=== PATIENT | male | born 1985 | race Caucasian/White ===

== ENCOUNTER 2024-06-30 10:51 | Emergency (ER) | payer OTHER, SELFPAY ==
[2024-06-30 10:58] VITALS: BP 134/79; PULSE 87; RESP 18; TEMP 40.3; O2SAT 98
[2024-06-30 10:59] VITALS: BP 134/79; PULSE 84; RESP 18; TEMP 40.3; O2SAT 98; BMI 21.7
--- NOTE | 2024-06-30 11:39 | CRLHL7_ITS ---
For Patients: As a result of the Cures Act, medical imaging exams and procedure reports are released immediately into your electronic medical record. You may view this report before your referring provider. If you have questions, please contact your health care provider. INDICATION: Fever body aches TECHNIQUE: Chest radiograph 2 views COMPARISON: None FINDINGS: Mediastinum: The mediastinum is normal in appearance. The heart silhouette is normal in size and morphology. Lung: Moderate to severe patchy consolidation in the left lung base is present likely due to pneumonia. No sign of pleural effusion seen. No pneumothorax is identified. Bone and Soft tissue: Unremarkable for age. IMPRESSION: 1. Moderate to severe patchy consolidation in the left lung base is present likely due to pneumonia. Dictated by Jose Manuel Teran MD @ 06/30/2024 12:28:56 PM Dictated by: Jose Manuel Teran MD @ 06/30/2024 12:29:00 (Electronically Signed)
--- NOTE | 2024-06-30 11:51 | ED_ITS ---
HPI - Fever General Chief Complaint: Fever Stated Complaint: fever, body aches Time Seen by Provider: 06/30/24 11:32 History of Present Illness HPI Narrative: This 38-year-old male comes in reporting fever and generalized aches and pains especially increased pain in his low back. He does not report headache or neck pain. He states that he does not have any cough or shortness of breath. He does not report any dysuria symptoms. He arrives here with a temperature of 104.5? F. he states that symptoms started a couple days ago and he was able to treat the symptoms sufficiently with Tylenol and ibuprofen. He states that this is no longer helping him. He has not had Tylenol since last night but did have some ibuprofen several hours ago. Related Data Previous Rx's ?Medication ?Instructions ?Recorded doxycycline hyclate 100 mg capsule 100 mg PO BID 10 days #20 caps 06/30/24 ketorolac 10 mg tablet 10 mg PO Q8H 5 days #15 tabs 06/30/24 Allergies Allergy/AdvReac Type Severity Reaction Status Date / Time No Known Drug Allergies Allergy Verified 06/30/24 10:59 Review of Systems Status of ROS Reports: 10 or more systems reviewed and unremarkable except as noted in History and below Narrative Constitutional: No weight gain or loss. Eyes: No discharge. No vision changes. HENT: No congestion, no sore throat, no ear pain. Cardiovascular: No chest pain, no palpitations. Respiratory: No shortness of breath, no wheezes, no cough. Gastrointestinal: No abdominal pain, no vomiting, no diarrhea. Genitourinary: No dysuria, no hematuria. Musculoskeletal: Normal range of motion. Skin: No rashes, no pruritis. Neurological: No dizziness, weakness, sensory change, speech change. Endo/Heme/Allergies: No bruising or bleeding. No polydipsia. Pysch: no suicidality, no anxiety, no insomnia. All other systems reviewed and are negative. PFSH PFSH Social History Smoking Status: Former smoker What tobacco products do you use: cigarettes Smoking quit date/years: <= 15 years ago How often do you have a drink containing alcohol: monthly or less AUDIT-C Alcohol total score: 1 Non-prescribed substance use: former substance user and marijuana (any form) Exam Narrative Exam Narrative: Constitutional: Well-developed, well-nourished. HEENT: Normocephalic, atraumatic. Neck: Normal range of motion. Nontender. Supple. Heart: Regular. No murmurs. Normal rate. Intact distal pulses. Lungs: Clear to auscultation. No chest discomfort. No wheezes, rhonchi, or rales. Abdomen: Normal bowel sounds. Nontender. No rebound tenderness. Genitalia: Deferred. Back: No midline tenderness. Normal range of motion. He reports generalized low back pain. Extremities: Normal range of motion. No injury. Skin: Intact. No rash. Warm. No erythema or pallor. Neurologic: No altered sensation. No weakness. Alert and oriented. Psychiatric: No suicidality. No anxiety or depression. No insomnia. Nursing notes and vitals signs are reviewed. Const Vital Signs, click to edit/add: Vital Signs - 24 hr 06/30/24 10:58 06/30/24 10:59 06/30/24 11:55 Temperature 104.5 F H 104.5 F H 104.5 F H Pulse Rate [Pulse Oximeter] 87 84 Respiratory Rate 18 18 Blood Pressure [Right Arm] 134/79 Blood Pressure [Right Upper Arm] 134/79 Pulse Oximetry 98 98 Oxygen Delivery Method Room Air Room Air 06/30/24 12:00 Temperature 103.5 F H Pulse Rate [Pulse Oximeter] 80 Respiratory Rate 16 Blood Pressure [Right Arm] Blood Pressure [Right Upper Arm] 132/70 Pulse Oximetry 98 Oxygen Delivery Method Room Air Course Vital Signs Vital signs: Initial Vital Signs Temperature 104.5 F H 06/30/24 10:58 Temperature Source Temporal Artery Scan 06/30/24 10:58 Pulse Rate 87 06/30/24 10:58 Pulse Rhythm Regular 06/30/24 10:58 Respiratory Rate 18 06/30/24 10:58 Respiratory Effort Normal, Spontaneous, Non-Labored 06/30/24 10:58 Respiratory Depth Normal 06/30/24 10:58 Respiratory Pattern Normal 06/30/24 10:58 Blood Pressure 134/79 06/30/24 10:58 Blood Pressure Mean 97 06/30/24 10:58 Blood Pressure Position Sitting 06/30/24 10:58 Pulse Oximetry 98 06/30/24 10:58 Oxygen Delivery Method Room Air 06/30/24 10:58 Sepsis Recent Fever Within 48 Hours Yes 06/30/24 10:58 Sepsis New/Unexplained Change in Mental Status No 06/30/24 10:58 Sepsis Action Taken by Nursing Physician Notified 06/30/24 10:58 Vital Signs Temperature 104.5 F H 06/30/24 10:58 Pulse Rate 87 06/30/24 10:58 Respiratory Rate 18 06/30/24 10:58 Blood Pressure 134/79 06/30/24 10:58 Pulse Oximetry 98 06/30/24 10:58 Oxygen Delivery Method Room Air 06/30/24 10:58 Temperature 103.5 F H 06/30/24 12:00 Pulse Rate 80 06/30/24 12:00 Respiratory Rate 16 06/30/24 12:00 Blood Pressure 132/70 06/30/24 12:00 Pulse Oximetry 98 06/30/24 12:00 Oxygen Delivery Method Room Air 06/30/24 12:00 Medications Administered Medications: Discontinued Medications Generic Name Dose Route Start Last Admin Trade Name Freq PRN Reason Stop Dose Admin Hydromorphone HCl 0.3 mg 06/30/24 11:38 06/30/24 11:55 Hydromorphone 0.5 Mg/0.5 Ml Inj IVP 06/30/24 11:39 0.3 mg ONCE ONE Administration Sodium Chloride 1,000 mls @ 1,000 mls/hr 06/30/24 11:45 06/30/24 11:55 0.9 % Sodium Chloride 1000 Ml IV 06/30/24 12:44 1,000 mls/hr .Q1H ANIA Administration Piperacillin Sod/Tazobactam 100 mls @ 200 mls/hr 06/30/24 12:08 06/30/24 13:06 Sod 3.375 gm/ Sodium Chloride IVPB 06/30/24 12:09 Infused ONCE ONE Infusion Ketorolac Tromethamine 30 mg 06/30/24 11:38 06/30/24 11:55 Ketorolac 30 Mg/Ml Inj IVP 06/30/24 11:39 30 mg ONCE ONE Administration MDM - Fever MDM Narrative Medical decision making narrative: This patient comes in with a rather significant fever but otherwise has normal vital signs. An IV was established where he did receive Dilaudid 0.2 mg and Toradol 30 mg. Labs are acquired along with a blood culture. His lactate returns in normal range. Other lab results are also reassuring. X-ray imaging of the chest shows an obvious left pneumonia. The patient received an IV dose of Zosyn and is feeling much better. I did offer admission into the hospital but he prefers to return home. I did advise him to return if worsening symptoms occur. He received prescriptions for doxycycline and Toradol. Lab Data Labs: Lab Results 06/30/24 Range/Units 11:50 WBC 10.11 (4.50-11.00) K/uL RBC 5.34 (4.30-5.90) m/uL Hgb 15.8 (13.5-17.5) gm/dL Hct 45.3 (37.0-53.0) % MCV 85 (80-100) fL MCH 30 (26-34) pg MCHC 35 (32-36) gm/dL RDW Coeff of Renzo 11.7 (11.5-15.5) % Plt Count 172 (140-440) K/uL Neut % (Auto) 86.4 H (42.0-72.0) % Lymph % (Auto) 9.2 L (20-44) % [place] % (Auto) 3.3 (0.0-11.0) % Eos % (Auto) 0.1 (0.0-7.0) % Baso % (Auto) 0.2 (0.0-3.0) % Neut # (Auto) 8.70 H (1.7-7.0) K/uL Lymph # (Auto) 0.90 (0.90-2.90) K/uL [place] # (Auto) 0.30 (0.00-0.90) K/UL Eos # (Auto) 0.01 (0.00-0.50) K/uL Baso # (Auto) 0.02 (0.00-0.30) K/uL Abs Immat Gran (auto) 0.08 (0.00-0.30) K/uL Imm/Tot Granulo (auto) 0.8 % Sodium 133 L (135-149) mmol/L Potassium 3.9 (3.6-5.1) mmol/L Chloride 101 (96-114) mmol/L Carbon Dioxide 22 (20-32) mmol/L Anion Gap 10 (7-15) mEq/L BUN 17 (5-24) mg/dL Creatinine 0.8 (0.5-1.5) mg/dL Estimated Creat Clear 129.78 Estimated GFR 117 ml/min Glucose 105 (60-115) mg/dL Lactate 1.8 (0.5-1.9) mmol/L Calcium 9.2 (8.4-10.6) mg/dL Procalcitonin 0.89 H (<0.50) ng/mL Imaging Data Chest x-ray: Radiologist's impression: Moderate to severe patchy consolidation in the left lung base is present likely due to pneumonia. Discharge Plan Discharge Clinical Impression: Pneumonia Patient Disposition: Home, Self-Care Condition: Improved Additional Instructions: Take medication as prescribed. Follow up with MD or return if worsening symptoms occur. Prescriptions: New doxycycline hyclate 100 mg capsule 100 mg PO BID 10 Days Qty: 20 0RF ketorolac 10 mg tablet 10 mg PO Q8H 5 Days Qty: 15 0RF Follow Up/Referrals: Provider,Not a Local [Primary Care Provider] - Stand Alone Forms: [employer] Info Instructions
[2024-06-30 11:55] VITALS: TEMP 40.3
[2024-06-30] MEDS: HYDROmorphone 0.5 mg/0.5 ml inj 0.3 MG IVP (11:55)
[2024-06-30] MEDS: KETOROLAC 30 MG/ML inj IVP (11:55)
[2024-06-30] MEDS: 0.9 % SODIUM CHLORIDE 1000 ml 1,000 ML IV (11:55)
[2024-06-30 12:00] VITALS: BP 132/70; PULSE 80; RESP 16; TEMP 39.7; O2SAT 98
[2024-06-30 12:05] LABS: Lactate* 1.8 mmol/L (0.5-1.9)
[2024-06-30 12:14] LABS: Basophils Absolute Auto 0.02 K/uL (0.00-0.30); Basophils Percent Auto 0.2 % (0.0-3.0); Eosinophils Absolute Auto 0.01 K/uL (0.00-0.50); Eosinophils Percent Auto 0.1 % (0.0-7.0); Hematocrit 45.3 % (37.0-53.0); Hemoglobin* 15.8 gm/dL (13.5-17.5); Immature Granulocytes Abs Auto 0.08 K/uL (0.00-0.30); Immature Granulocytes Pct Auto 0.8 %; Lymphocytes Percent Auto 9.2 % (20-44); Mean Corpuscular HGB Conc 35 gm/dL (32-36); Mean Corpuscular Hemoglobin 30 pg (26-34); Mean Corpuscular Volume 85 fL (80-100); Monocytes Percent Auto 3.3 % (0.0-11.0); Neutrophils Percent Auto 86.4 % (42.0-72.0); Platelet Count* 172 K/uL (140-440); RDW Coefficient of Variation % 11.7 % (11.5-15.5); Red Blood Count 5.34 m/uL (4.30-5.90); Slide Review Reflex No; White Blood Count* 10.11 K/uL (4.50-11.00)
[2024-06-30] MEDS: PIPERACILLIN/TAZOBACTAM 3.375 GM in 0.9 % SODIUM CHLORIDE Mini-bag 100 ML IVPB (12:20)
[2024-06-30 12:33] LABS: Chloride* 101 mmol/L (96-114); Potassium* 3.9 mmol/L (3.6-5.1); Sodium* 133 mmol/L (135-149)
[2024-06-30 12:36] LABS: Anion Gap 10 mEq/L (7-15); Blood Urea Nitrogen* 17 mg/dL (5-24); Carbon Dioxide* 22 mmol/L (20-32); Creatinine* 0.8 mg/dL (0.5-1.5); Est. Creatinine Clearance* 129.78; Estimated Glomerular Filt Rate 117 ml/min
[2024-06-30 12:37] LABS: Calcium* 9.2 mg/dL (8.4-10.6); Glucose* 105 mg/dL (60-115)
[2024-06-30 12:54] LABS: Procalcitonin* 0.89 ng/mL (<0.50)
[2024-06-30 13:09] LABS: Appearance Urine Clear (Clear); Bilirubin Urine Negative (Negative); Blood Urine Negative (Negative); Color Urine Yellow (Yellow); Glucose Urine Negative (Negative); Ketones Urine 2+ (Negative); Leukocyte Esterase Urine Negative (Negative); Nitrite Urine Negative (Negative); Protein Urine 3+ (Negative); Specific Gravity Urine 1.015 (1.000-1.030)
[2024-06-30 13:24] LABS: RBC Urine 0-2 (0-2); Squamous Epithelial Cell Urine Few (None-Few); WBC Urine 0-2 (0-5); pH Urine >= 9.0 (5.0-8.5)
[2024-06-30 14:06] LABS: PCR FLU A Negative PCR FLU A (Negative); PCR FLU B Negative PCR FLU B (Negative); PCR RSV Negative PCR RSV (Negative); SARS PCR* Negative SARS-CoV-2 (Negative)
== END 2024-06-30 13:26 | disposition home or self-care (01) ==
PROVIDERS: Emergency Provider Emergency Medicine Emergency Medical Services
DX: J18.9 Pneumonia, unspecified organism (principal); R50.9 Fever, unspecified; M54.50 Low back pain, unspecified; M79.10 Myalgia, unspecified site
CPT/HCPCS: 36415; 71046; 80048; 81001; 83605; 84145; 85025; 87040; 87631; 96365; 96375; 99284; A9270; J1170; J1885; J2543; J7030

== ENCOUNTER 2024-06-30 20:24 | Emergency (ER) | payer OTHER, SELFPAY ==
[2024-06-30 20:28] VITALS: BP 136/72; PULSE 91; RESP 18; TEMP 38.1; O2SAT 96; BMI 21.7
--- NOTE | 2024-06-30 20:34 | ED_ITS ---
HPI - General Adult General Time Seen by Provider: 20:34 Date Seen: 06/30/24 Chief complaint: Back Injury/Pain Stated complaint: pain and fever, return from this morning Time Seen by Provider: 06/30/24 20:31 Source: patient Mode of arrival: ambulatory Limitations: no limitations History of Present Illness HPI narrative: 38-year-old male who comes in today with generalized body aches. Review of chart shows the patient was seen this morning, at that time and chest x-ray with patchy infiltrates consistent with pneumonia, no hypoxia, normal white count, normal basic panel, normal lactate. Patient was discharged on doxycycline, was also given Zosyn in the emergency department. Returns tonight complaining of all over body pain. Denies increasing shortness of breath or chest pain. Continues to have fevers and chills. No vomiting. Says he has been taking Tylenol and Toradol for his symptoms. Return to the emergency department because he is not feeling better. Related Data Previous Rx's ?Medication ?Instructions ?Recorded doxycycline hyclate 100 mg capsule 100 mg PO BID 10 days #20 caps 06/30/24 ketorolac 10 mg tablet 10 mg PO Q8H 5 days #15 tabs 06/30/24 Allergies Allergy/AdvReac Type Severity Reaction Status Date / Time No Known Drug Allergies Allergy Verified 06/30/24 10:59 [facility] Social History (Updated 06/30/24 @ 13:14 by Jose Daniel George MD) Smoking Status: Former smoker What tobacco products do you use: cigarettes Smoking quit date/years: <= 15 years ago How often do you have a drink containing alcohol: monthly or less AUDIT-C Alcohol total score: 1 Non-prescribed substance use: former substance user and marijuana (any form) Exam Narrative: Exam Narrative: General: Well-developed and well-nourished, no acute distress Head: Atraumatic and normocephalic Eyes: Pupils are equal reactive, extraocular motions intact, conjunctiva clear ENT: External nose and ears are normal, posterior pharynx without erythema or exudate Neck: No midline cervical tenderness, full spontaneous range of motion the neck, trachea midline, no adenopathy Heart: Regular rate and rhythm no murmurs or thrills Lungs: Clear to auscultation bilaterally without wheezes or crackles Abdomen: Soft, nontender, nondistended with active bowel sounds Musculoskeletal: No tenderness, deformity, or edema Neurologic: Awake, alert, and oriented x3, no gross focal neurologic deficits, cranial nerves intact as tested Psych: Mood and affect are appropriate Skin: No rashes Const: Vital Signs, click to edit/add: Vital Signs - 24 hr 06/30/24 20:28 Temperature 100.5 F H Pulse Rate [Left P ulse Oximeter] 91 Respiratory Rate 18 Blood Pressure [Ri ght Upper Arm] 136/72 Pulse Oximetry 96 Oxygen Delivery Me thod Room Air Course Course ED Course: Patient seen and examined, seen earlier today and diagnosed with pneumonia. Returns today with continued body aches, fever, chills. On initial exam vitally stable, appears uncomfortable but nontoxic. Labs and IV fluids will be ordered. At this point patient has no hypoxia and is finally stable, no indication for admission and so will work on symptom management. He has no focal back pain, no midline tenderness to percussion, no lower extremity neurologic symptoms to suggest diskitis or epidural abscess. Reevaluation(s) Time of Reevaluation #1: 21:45 Reevaluation #1: Labs independently interpreted by me are reassuring. Will add Augmentin to patient's current doxycycline, stable for discharge Vital Signs Vital signs: Initial Vital Signs Temperature 100.5 F H 06/30/24 20:28 Temperature Source Temporal Artery Scan 06/30/24 20:28 Pulse Rate 91 06/30/24 20:28 Pulse Rhythm Regular 06/30/24 20:28 Respiratory Rate 18 06/30/24 20:28 Blood Pressure 136/72 06/30/24 20:28 Blood Pressure Mean 93 06/30/24 20:28 Blood Pressure Position Sitting 06/30/24 20:28 Pulse Oximetry 96 06/30/24 20:28 Oxygen Delivery Method Room Air 06/30/24 20:28 Vital Signs Temperature 100.5 F H 06/30/24 20:28 Pulse Rate 91 06/30/24 20:28 Respiratory Rate 18 06/30/24 20:28 Blood Pressure 136/72 06/30/24 20:28 Pulse Oximetry 96 06/30/24 20:28 Oxygen Delivery Method Room Air 06/30/24 20:28 Temperature 100.5 F H 06/30/24 20:28 Pulse Rate 91 06/30/24 20:28 Respiratory Rate 18 06/30/24 20:28 Blood Pressure 136/72 06/30/24 20:28 Pulse Oximetry 96 06/30/24 20:28 Oxygen Delivery Method Room Air 06/30/24 20:28 Medications Administered Medications: Generic Name Dose Route Start Last Admin Trade Name Freq PRN Reason Stop Dose Admin Sodium Chloride 1,000 mls @ 1,000 mls/hr 06/30/24 21:00 06/30/24 21:07 0.9 % Sodium Chloride 1000 Ml IV 06/30/24 21:59 1,000 mls/hr .Q1H ANIA Administration Discontinued Medications Generic Name Dose Route Start Last Admin Trade Name Freq PRN Reason Stop Dose Admin Oxycodone HCl 5 mg 06/30/24 20:48 06/30/24 21:08 Oxycodone 1 Mg/Ml Oral Soln PO 06/30/24 20:49 5 mg ONCE ONE Administration Medical Decision Making Lab Data Labs: Lab Results 06/30/24 Range/Units 21:00 WBC 8.45 (4.50-11.00) K/uL RBC 4.66 (4.30-5.90) m/uL Hgb 13.9 (13.5-17.5) gm/dL Hct 38.9 (37.0-53.0) % MCV 84 (80-100) fL MCH 30 (26-34) pg MCHC 36 (32-36) gm/dL RDW Coeff of Renzo 11.7 (11.5-15.5) % Plt Count 145 (140-440) K/uL Neut % (Auto) 83.8 H (42.0-72.0) % Lymph % (Auto) 11.5 L (20-44) % [place] % (Auto) 4.0 (0.0-11.0) % Eos % (Auto) 0.1 (0.0-7.0) % Baso % (Auto) 0.4 (0.0-3.0) % Neut # (Auto) 7.10 H (1.7-7.0) K/uL Lymph # (Auto) 1.00 (0.90-2.90) K/uL [place] # (Auto) 0.30 (0.00-0.90) K/UL Eos # (Auto) 0.01 (0.00-0.50) K/uL Baso # (Auto) 0.03 (0.00-0.30) K/uL Abs Immat Gran (auto) 0.02 (0.00-0.30) K/uL Imm/Tot Granulo (auto) 0.2 % Sodium 133 L (135-149) mmol/L Potassium 3.5 L (3.6-5.1) mmol/L Chloride 105 (96-114) mmol/L Carbon Dioxide 19 L (20-32) mmol/L Anion Gap 9 (7-15) mEq/L BUN 16 (5-24) mg/dL Creatinine 0.8 (0.5-1.5) mg/dL Estimated Creat Clear 129.78 Estimated GFR 117 ml/min Glucose 109 (60-115) mg/dL Calcium 8.4 (8.4-10.6) mg/dL Discharge Plan Discharge Clinical Impression: Pneumonia, Myalgia Patient Disposition: Home, Self-Care Condition: Stable Instructions: Community Acquired Pneumonia (DC), Musculoskeletal Pain (ED) Additional Instructions: Take Tylenol 1000 mg every 6 hours Take ketorolac 10 mg every 6 hours as prescribed earlier. Do not take ibuprofen while your taking ketorolac. Continue doxycycline and add Augmentin, both for 10 days. You may take these together. Activity Level: Activity as Tolerated Prescriptions: No Action doxycycline hyclate 100 mg capsule 100 mg PO BID 10 Days Qty: 20 0RF ketorolac 10 mg tablet 10 mg PO Q8H 5 Days Qty: 15 0RF Follow Up/Referrals: Provider,Not a Local [Primary Care Provider] - Stand Alone Forms: Care Team [employer] Info Instructions
[2024-06-30 21:06] LABS: Basophils Absolute Auto 0.03 K/uL (0.00-0.30); Basophils Percent Auto 0.4 % (0.0-3.0); Eosinophils Absolute Auto 0.01 K/uL (0.00-0.50); Eosinophils Percent Auto 0.1 % (0.0-7.0); Hematocrit 38.9 % (37.0-53.0); Hemoglobin* 13.9 gm/dL (13.5-17.5); Immature Granulocytes Abs Auto 0.02 K/uL (0.00-0.30); Immature Granulocytes Pct Auto 0.2 %; Lymphocytes Percent Auto 11.5 % (20-44); Mean Corpuscular HGB Conc 36 gm/dL (32-36); Mean Corpuscular Hemoglobin 30 pg (26-34); Mean Corpuscular Volume 84 fL (80-100); Neutrophils Percent Auto 83.8 % (42.0-72.0); Platelet Count* 145 K/uL (140-440); RDW Coefficient of Variation % 11.7 % (11.5-15.5); Red Blood Count 4.66 m/uL (4.30-5.90); White Blood Count* 8.45 K/uL (4.50-11.00)
[2024-06-30 21:07] LABS: Slide Review Reflex No
[2024-06-30] MEDS: 0.9 % SODIUM CHLORIDE 1000 ml 1,000 ML IV (21:07)
[2024-06-30] MEDS: OXYCODONE 1 MG/ML ORAL SOLN 5 MG PO (21:08)
[2024-06-30 21:18] LABS: Chloride* 105 mmol/L (96-114)
[2024-06-30 21:19] LABS: Potassium* 3.5 mmol/L (3.6-5.1); Sodium* 133 mmol/L (135-149)
[2024-06-30 21:21] LABS: Creatinine* 0.8 mg/dL (0.5-1.5); Est. Creatinine Clearance* 129.78; Estimated Glomerular Filt Rate 117 ml/min
[2024-06-30 21:22] LABS: Anion Gap 9 mEq/L (7-15); Blood Urea Nitrogen* 16 mg/dL (5-24); Calcium* 8.4 mg/dL (8.4-10.6); Carbon Dioxide* 19 mmol/L (20-32); Glucose* 109 mg/dL (60-115)
== END 2024-06-30 22:08 | disposition home or self-care (01) ==
PROVIDERS: Emergency Provider Family Medicine
DX: J18.9 Pneumonia, unspecified organism (principal)
CPT/HCPCS: 36415; 80048; 85025; 99284; A9270; J7030